=== PATIENT | female | born 1965 | race Caucasian/White ===

== ENCOUNTER → 2019-11-07 | Outpatient (CLI) | payer OTHER ==
--- NOTE | 2019-11-11 09:32 | MM ---
Reason for exam: screening (asymptomatic). Last mammogram was performed 9 months ago. History: Patient is postmenopausal. Family history of breast cancer in mother at age 60 and breast cancer in aunt at age 60. Physical Findings: A clinical breast exam by your physician is recommended on an annual basis and results should be correlated with mammographic findings. MG 3D Screening Mammo W/Cad Bilateral CC and MLO view(s) were taken. Prior study comparison: January 22, 2019, mammogram, performed at [facility]. June 26, 2018, mammogram, performed at [facility]. The breast tissue is heterogeneously dense. This may lower the sensitivity of mammography. No significant changes when compared with prior studies. ASSESSMENT: Negative, BI-RAD 1 RECOMMENDATION: Routine screening mammogram of both breasts in 1 year.
== END | disposition home or self-care (01) ==
LOC: RADMAMWWP 16:10
PROVIDERS: ATTEND Family Medicine
DX: Z12.31 Encounter for screening mammogram for malignant neoplasm of breast (principal)
CPT/HCPCS: 77063; 77067

== ENCOUNTER → 2020-06-26 | Outpatient (CLI) | payer OTHER | END | disposition home or self-care (01) | LOC: LABWHC1 10:53 | PROVIDERS: ATTEND Family Medicine | DX: Z20.89 Contact with and (suspected) exposure to other communicable diseases (principal) | CPT/HCPCS: U0003; C9803 ==

== ENCOUNTER → 2022-01-31 | Outpatient (CLI) | payer OTHER ==
--- NOTE | 2022-01-31 09:04 | CT ---
EXAMINATION TYPE: CT iac w con DATE OF EXAM: 01/31/2022 COMPARISON: None available HISTORY: hearing loss CT DLP: 142.70 mGycm Automated exposure control for dose reduction was used. CONTRAST: CT scan of the IACs is performed with IV Contrast, patient injected with 100 ml mL of Isovue 300. FINDINGS: Mild thickening of the left tympanic membrane with questionable tiny perforation, please correlate cl inically. Opacification of the left inferior mastoid air cells which may suggest a mild mastoiditis. Clear left aditus ad antrum. Minimal opacification of the right inferior mastoid air cells with clear right aditus ad antrum. Otherwise symmetrical unremarkable middle and inner ears structures. Unremarkable symmetric internal auditory canals. No significant external auditory canal abnormality. Intact tegmen tympani bilaterall y. Very minimal mucosal thickening of the right maxillary sinus, otherwise clear visualized paranasal si nuses. Minimal deviation the bony nasal septum convex to the left side. Hypoplastic inferior turbinat es. Focal soft tissue thickening seen along the left side of the nasopharynx measuring 10 mm, nonspecific . Small underlying lesion cannot be excluded, please correlate clinically. Further ENT consultation c an be considered. No gross mass or abnormal enhancement seen in the CP angles. Unremarkable visualize d portion of the brain and orbits. IMPRESSION: 1. Mild opacification of the mastoid air cells suggestive of mastoiditis, please correlate clinically . Otherwise unremarkable middle and inner ear structures. 2. Thickened left tympanic membrane with questionable tiny perforation, please relate clinically. 3. 10 mm focal thickening of the left side of the nasopharynx, underlying lesion cannot be excluded, please correlate clinically. Further ENT consultation can be considered. Other incidental findings as described above.
== END | disposition home or self-care (01) ==
LOC: RADCTMAIN 07:35
PROVIDERS: ATTEND Otolaryngology
DX: H74.8X3 Other specified disorders of middle ear and mastoid, bilateral (principal); H73.892 Other specified disorders of tympanic membrane, left ear; J39.2 Other diseases of pharynx
CPT/HCPCS: 70481; Q9967

== ENCOUNTER → 2022-06-22 | Outpatient (CLI) | payer OTHER ==
--- NOTE | 2022-06-23 07:45 | MM ---
Reason for Exam: Screening (asymptomatic). Last mammogram was performed 2 year(s) and 7 month(s) ago. Patient History: Menarche at age 12. First Full-Term at age 16. Postmenopausal. Maternal aunt had breast cancer, age 60. Mother had breast cancer, age 60. Risk Values: Margaux 5 year model risk: 2.5%. NCI Lifetime model risk: 13.8%. Prior Study Comparison: 06/26/2018 Screening Mammogram, [facility]. 01/22/2019 Screening Mammogram, [facility]. 11/07/2019 Bilateral Screening Mammogram, [facility]. Tissue Density: The breast tissue is heterogeneously dense. This may lower the sensitivity of mammography. Findings: Analyzed By CAD. There is no suspicious group of microcalcifications or new suspicious mass in either breast. Overall Assessment: Negative, BI-RAD 1 Management: Screening Mammogram of both breasts in 1 year. A clinical breast exam by your physician is recommended on an annual basis and results should be correlated with mammographic findings. Electronically signed and approved by: Jason Antunez M.D. [facility]
== END | disposition home or self-care (01) ==
LOC: RADMAMWWP 07:15
PROVIDERS: ATTEND Obstetrics & Gynecology
DX: Z12.31 Encounter for screening mammogram for malignant neoplasm of breast (principal); Z78.0 Asymptomatic menopausal state; Z80.3 Family history of malignant neoplasm of breast
CPT/HCPCS: 77063; 77067